=== PATIENT | male | born 1980 | race Caucasian/White ===

== ENCOUNTER 2019-03-11 14:08 | Emergency (ER) | payer BC ==
[~2019-03-11] VITALS: Ht 190.5 cm; Wt 102.3 kg
[~2019-03-11 14:08] MED LIST: LIDOcaine 1% 30ml preserv. free vial ONE
[2019-03-11 14:19] VITALS: BP 112/75
[2019-03-11] MEDS ORDERED: BUPIVAcaine/PF 2.5 mg/ml (0.25%) 30ml vial IJ ONE (14:35)
[2019-03-11] MEDS ORDERED: tetanus & diphtheria toxoid (Td) vaccine 0.5ml IMVAC ONE (14:35)
[2019-03-11] MEDS ORDERED: TETanus/Pertussis (Acell)/Diphther VAC/PF (Tdap-Adult) 0.5ml syringe IMVAC ONE (14:40)
[2019-03-11] MEDS ORDERED: sodium bicarbonate (8.4%) inj. 1 MEQ/ML ML IV ONE (14:40)
[2019-03-11] MEDS ORDERED: BUPIVAcaine/PF 2.5mg/ml (0.25%) 10ml vial IJ ONE (14:40)
[2019-03-11] MEDS ORDERED: silver nitrate applicator stick TP ONE (15:10)
[2019-03-11] MEDS ORDERED: ibuprofen tablet 400 MG TABLET PO ONE (15:20)
[2019-03-11] MEDS ORDERED: AMOX-419 PO (15:22)
[2019-03-11] MEDS ORDERED: IBUP-1984 PO (15:22)
[2019-03-11] MEDS ORDERED: amox tr/potassium clavulanate 500mg/125mg TAB PO SCH (17:30)
== END 2019-03-11 18:05 | disposition home or self-care (01) ==
LOC: ER 14:09
DX: S68.522A Partial traumatic transphalangeal amputation of left thumb, initial encounter (principal); Z79.1 Long term (current) use of non-steroidal anti-inflammatories (NSAID); Z79.2 Long term (current) use of antibiotics; W31.89XA Contact with other specified machinery, initial encounter; Y93.89 Activity, other specified; Y92.89 Other specified places as the place of occurrence of the external cause; Y99.8 Other external cause status
CPT/HCPCS: 12002; 73140; 90471; 90715; 99285; J2001; J3490

== ENCOUNTER 2019-03-20 06:18 | Emergency (ER) | payer BC ==
[~2019-03-20] VITALS: Ht 190.5 cm; Wt 102.3 kg
[~2019-03-20 06:18] MED LIST changes: +IBUP-1984 PO; -LIDOcaine 1% 30ml preserv. free vial ONE
[2019-03-20 06:24] VITALS: BP 128/88
== END 2019-03-20 08:06 | disposition home or self-care (01) ==
LOC: ER 06:19
DX: S61.012D Laceration without foreign body of left thumb without damage to nail, subsequent encounter (principal); Z79.899 Other long term (current) drug therapy; X58.XXXD Exposure to other specified factors, subsequent encounter
CPT/HCPCS: 99282